=== PATIENT | male | born 1965 | race Caucasian/White ===

== ENCOUNTER → 2024-04-13 12:46 | Outpatient (REF) | payer BC, SELFPAY | LOC: RAD 12:46 | PROVIDERS: ATTENDING PHYSICIAN Surgery; FAMILY PHYSICIAN Family Medicine | DX: R31.9 Hematuria, unspecified (principal) | CPT/HCPCS: 74178; Q9967 ==

== ENCOUNTER 2024-04-27 20:35 | Day surgery (SDC) | payer BC, SELFPAY ==
[2024-04-27 16:13] VITALS: BP 90/65
[2024-04-27 16:27] VITALS: BMI 30.5
--- NOTE | 2024-04-27 16:42 | ED.GENMED ---
History of Present Illness
General
Chief Complaint: Flank Pain
Source: patient
Exam Limitations: none
Time Seen by Provider: 04/27/24 16:25
Nursing documentation reviewed up to this point in time: agreed with
History of Present Illness
History of Present Illness:
Patient to ED with complaint of right flank pain. He was evaluated by urology (Dr. Valdez) earlier this month when he noticed hematuria. OP CT revealed 5mm distal ureter stone. He also had a cystoscopy to r/o bladder issues - no issues found. He
is on eliquis for hx of Afib. He was placed on flowmax and was scheduled for a follow up next month. States today he developed mild right flank discomfort while at work. Pain has gotten progressively worse. Brought self to ED for eval. Spouse
met him in ED. Denies fever/chills, vomiting.
Past History
Past History
ED Past Medical History: Arrthythmia (Atrial fibrillation), HTN and Hypercholesterolemia
ED Past Surgical History: Cardiac
Patient has exhibited threatening behavior?: No
Social History
Tobacco: Non-smoker
Alcohol: Occasional
Personal:
Living: with family
Employment: Employed
Family History
Family History: Negative Diabetes, Hypertension or CAD
Review of Systems
Review of Systems
Allergies reviewed?: Yes
All Other Systems: ROS reviewed and negative except as documented in HPI and ROS
Constitutional: Reports no symptoms
EENT: Reports no symptoms
Respiratory: Reports no symptoms
Cardiac: Reports no symptoms
ABD/GI: Reports nausea
: Reports flank pain (RIght flank pain)
Musculoskeletal: Reports no symptoms
Skin: Reports no symptoms
Neurological: Reports no symptoms
Psychiatric: Reports no symptoms
Phy Exam
General Physical Exam
General Presentation: moderate distress
General age: appears stated age
General Skin: warm and dry
General Habitus: normal
General Mental: alert
Cardiovascular Exam
Cardiovascular Exam: regular rate/rhythm
Pulmonary Exam
Pulmonary Exam: no respiratory distress
Gastrointestinal Exam
Gastrointestinal Exam: normal bowel sounds, soft, no organomegaly, non distended and other (RIght flank pain)
Musculoskeletal Exam
Musculoskeletal Exam: full ROM and neuro vasc intact
Skin Exam
Skin Exam: normal color, warm/dry and no rash
Psychiatric Exam
Psychiatric Exam: normal mood/affect
Course
Orders/Labs/Results
Orders:
Orders
04/27/24 Dinner
Regular
At Your Request: Full Participation
04/27/24 16:40
0.9% Sodium Chloride 1000 ml [Nss] 1,000 ml IV BOLUS
HYDROmorphone [Dilaudid] 0.5 mg IV NOW STA
Ondansetron Injectable [Zofran] 4 mg IV NOW STA
04/27/24 16:41
CT Abd/pel Without Iv Or Oral Urgent
Comment:
Reason For Exam: right flank pain
04/27/24 16:52
Complete Blood Count/With Diff Urgent
Comprehensive Metabolic Panel Urgent
04/27/24 17:42
HYDROmorphone [Dilaudid] 0.5 mg .ROUTE .STK-MED ONE
04/27/24 17:44
HYDROmorphone [Dilaudid] 0.5 mg IV NOW STA
04/27/24 18:50
Urinalysis Reflex To Culture Urgent
Date Specimen was Collected: 04/27/24
Time Specimen was Collected: 18:41
Urine Microscopic Reflex Cult Urgent
Urine Culture Urgent
EDIS Source: U
Specimen Description:
Date Specimen was Collected: 04/27/24
Time Specimen was Collected: 18:41
04/27/24 19:55
Admit Patient As Directed
Co-Sign Provider:
Level of Care: Observation services
Assign to:: Medical/Surgical
Physician / Group: Peffer
Diagnosis: R ureteral stone
Expected length of stay greater than two midnights?: No
Code Status As Directed
Resuscitation Status: Full Code
Acetaminophen [Tylenol] 650 mg PO Q4HPRN PRN
HYDROmorphone [Dilaudid] 1 mg IV Q2HPRN PRN
Oxycodone/Acetaminophen [Percocet 5/325] 1 tablet PO Q4HPRN PRN
Oxycodone/Acetaminophen [Percocet 5/325] 2 tablet PO Q4HPRN PRN
Activity As Directed
Activity Level: As Tolerated
Intake/ Output As Directed
Frequency: Per unit guidelines
Okay to Shower As Directed
Pneumatic Compression Sleeves As Directed
Type: Knee high
Strain Urine As Directed
Vital Signs As Directed
Frequency: Per unit guidelines
PRN Pain Medication Management As Directed
May give lesser potent ordered pain med per pt: Yes
preference::
Protocol:: Medication orders for pain may be administered in a
manner that supports deferring to patient preference
when the pt is:
- Requesting an ordered lesser potent pain medication.
Least to most potent pain medications are defined
as: acetaminophen < NSAID < tramadol < opioids
(morphine, oxycodone, hydromorphone).
- Requesting a lesser dose of the same medication IF
ORDERED.
- Requesting a less intrusive route of administration
if both routes are prescribed by the provider (PO <
IV).
DX Deep Vein Thrombosis Video Routine
04/27/24 20:00
Normosol (Mult Electrolytes) [Normosol-R/Plasmalyte-A] 1,000 ml IV 125 mls/hr
04/27/24 20:01
EKG [Electrocardiogram (*1)] Routine
Reason for Study: PreOp
04/27/24 20:08
UROLOGY CONSULT Urgent
Consulting Provider: Eligio Miguel
Was physician already notified: Yes
04/27/24 22:00
Tamsulosin [Flomax] 0.4 mg PO HS
04/28/24 Breakfast
NPO
Allow oral meds: Yes
Allow clear liquids: No
Basic Metabolic Panel IN AM
Complete Blood Count/No Diff IN AM
LevoFLOXacin 500 MG/100 ML [Levaquin] 500 mg in 100 ml IV Q24H
04/28/24 08:00
Metoprolol [Lopressor] 25 mg PO DAILY
04/28/24 18:00
Atorvastatin [Lipitor] 40 mg PO QPM
Losartan [Cozaar] 25 mg PO QPM
Abnormal Lab Results
04/27/24 04/27/24
16:52 18:50
RBC 3.72 L 10^6/uL
(4.70-6.10)
Hgb 12.8 L g/dL
(13.0-18.0)
Hct 36.7 L %
(39.0-52.0)
MCV 98.7 H fL
(80.0-94.0)
MCH 34.4 H pg
(27.0-31.0)
RDW 11.3 L %
(11.5-14.5)
MPV 10.5 H fL
(7.4-10.4)
Absolute Lymphs (auto) 1.1 L 10^3/uL
(1.2-3.4)
Lymphocytes % 16.5 L %
(20.5-51.1)
Chloride 110 H mmol/L
(98-107)
Total Protein 5.7 L g/dl
(6.3-8.2)
Ur Occult Blood Reflex 4+ A
(Negative)
Urine Urobilinogen 2+ A
(Neg - 1+)
Leukocyte Esterase Rfl 1+ A
(Negative)
Urine RBC 70-80 A /HPF
(0-2)
Urine WBC (Reflex) 11-15 A /HPF
(0-5)
Urine Albumin (Reflex) 2+ A
(Neg - Trace)
04/27/24 16:52
04/27/24 16:52
Vital Signs
Initial and Last Documented VS:
Initial Vital Signs
Temp Pulse Resp BP Pulse Ox
97.6 F 77 16 90/65 98
04/27/24 16:13 04/27/24 16:13 04/27/24 16:13 04/27/24 16:13 04/27/24 16:13
Last Documented Vital Signs
Temp Pulse Resp BP Pulse Ox
97.9 F 73 20 141/98 96
04/27/24 22:05 04/27/24 22:05 04/27/24 22:05 04/27/24 22:05 04/27/24 22:05
*Radiology
Radiology exam reviewed: radiology read reviewed
*Pulse Oximetry
Patient hypoxic: no
*Critical Care Note
Total Time (30-74mins, 75-104mins- exclusive of procedures): Not Applicable
Update Note
Update Note:
6mm obstructing stone right proximal ureter with mild hydroureteronephrosis. Discussed findings with Dr. Miguel who evaluated this pateint in ED and has admitted this patient to his service.
ED Attending Note
-
Portions of this chart may have been created with voice recognition software.� Occasional wrong word or��sound alike� substitutions may have occurred due to the inherent limitations of voice recognition software.
Discharge Plan
Departure
Patient Disposition: Admit
Date of Disposition: 04/27/24
Time of Disposition: 20:04
Presentation/result/management discussed w/ accepting MD/DO: Dr. Miguel
Patient with high blood pressure during this ER visit?: Yes
Condition: Fair
Covid-19: Not Applicable
Discharge Problem:
Kidney stone
Interventions
Interventions:
*Risk Screen - Suicide Last Done: 04/27/24 16:13
*General Assessment Last Done: 04/27/24 16:27
*Neglect/Abuse Screening Last Done: 04/27/24 16:13
ED- Fall Risk Assessment Last Done: 04/27/24 16:27
*ED COVID-19 Vaccine History Last Done: 04/27/24 16:27
*Nursing Disposition Last Done: 04/27/24 22:03
UX-Wmycrs-Msqrcwxdjn Assessment Last Done: 04/27/24 16:27
ED-Male Genitourinary Assessment Last Done: 04/27/24 16:27
Discharge Date and Time
Discharge Date/Time: 04/27/24 22:04
[2024-04-27] MEDS: NSS 1000 IV (16:48)
[2024-04-27] MEDS: DILAUDID 0.5 MG IV ×2 (16:49→17:45)
[2024-04-27] MEDS: ZOFRAN 4 MG IV (16:49)
[2024-04-27 17:19] LABS: ALT (SGPT) 29 U/L (0-50); AST (SGOT) 28 U/L (17-59); Albumin 3.9 g/dl (3.5-5.0); Alkaline Phosphatase 52 U/L (38-126); Blood Urea Nitrogen 13 mg/dl (9-20); Calcium 8.8 mg/dl (8.4-10.2); Carbon Dioxide 22 mmol/L (22-30); Chloride 110 mmol/L (98-107); Estimated Creatinine Clearance 112 ml/min; Glucose 88 mg/dl (70-99); Potassium 3.8 mmol/L (3.5-5.1); Sodium 139 mmol/L (135-145); Total Bilirubin 0.9 mg/dl (0.2-1.3); Total Protein 5.7 g/dl (6.3-8.2); eGFR > 60.00
[2024-04-27 17:26] LABS: % Basophils 0.7 % (0-2); % Eosinophils 1.2 % (0-6); % Immature Granulocytes 0.1 % (0-0.5); % Lymphocytes 16.5 % (20.5-51.1); % Monocytes 7.5 % (1.7-9.3); Absolute Basophils 0.1 10^3/uL (0-0.2); Absolute Eosinophils 0.1 10^3/uL (0-0.7); Absolute Lymphocytes 1.1 10^3/uL (1.2-3.4); Absolute Monocytes 0.5 10^3/uL (0.1-0.6); Hematocrit 36.7 % (39.0-52.0); Hemoglobin 12.8 g/dL (13.0-18.0); Mean Corp Hgb Conc. 34.9 g/dL (33.0-37.0); Mean Corpuscular Hgb 34.4 pg (27.0-31.0); Mean Corpuscular Volume 98.7 fL (80.0-94.0); Mean Platelet Volume 10.5 fL (7.4-10.4); Nucleated Red Blood Cells % 0 % (-); Platelet Count 158 10^3/uL (130-400); Red Blood Cell Count 3.72 10^6/uL (4.70-6.10); Red Cell Dist. Width 11.3 % (11.5-14.5); White Blood Cell Count 6.7 10^3/uL (4.8-10.8)
[2024-04-27 18:55] VITALS: BP 136/82
[2024-04-27 18:55] LABS: Urine Albumin 2+ (Neg - Trace); Urine Bilirubin Negative (Negative); Urine Character Cloudy (Clear); Urine Color Yellow; Urine Glucose Negative (Negative); Urine Ketone Negative (Negative); Urine Leukocyte 1+ (Negative); Urine Nitrite Negative (Negative); Urine Occult Blood 4+ (Negative); Urine Specific Gravity 1.015 (<1.030); Urine Urobilinogen 2+ (Neg - 1+)
[2024-04-27 19:10] LABS: Urine Mucus Few; Urine Red Blood Cell 70-80 /HPF (0-2); Urine Squamous Cell 0-2 /LPF (Few)
--- NOTE | 2024-04-27 19:59 | HP.FOC2 ---
Focused History & Physical
Chief Complaint
HPI:
Chief Complaint: Flank pain
HPI / Indication for Planned Procedure: 58M [address] Valdez for hematuria and R prox ureteral stone dx earlier this month
Presented for acute R flank pain which was not able to be controlled with IV meds in the ER
No fevers/chills
No sepsis or infectious signs in ED
On Eliquis for afib - has not recently been in afib per his report
Has a cardioversion planned for early May
Relevant Past Medical History: Other (Kidney stones)
Relevant Social History: Negative
Relevant Family History: Negative
Relevant Past Surgical History: Negative
Review of Systems
Review of Pertinent Systems: All Systems Negative Except for the Following Positives
Medication
See Medication form for detailed medications: Yes
Medication List (including Herbals & OTC):
apixaban 5 mg tablet (Eliquis) 5 mg PO BID 04/07/21
metoprolol tartrate 25 mg tablet 25 mg PO DAILY 04/07/21
vardenafil 20 mg tablet (Levitra) 20 mg PO DAILYPRN PRN as needed 04/07/21
atorvastatin 40 mg tablet 40 mg PO QPM #90 tabs 04/28/21
losartan 25 mg tablet 25 mg PO QPM 04/28/21
Medications Reviewed: Yes
Allergies and Reactions
Patient has Allergies: Yes
Noted Allergies and Reactions:
Allergy/AdvReac Type Severity Reaction Status Date / Time
Cephalosporins Allergy Severe Hives Verified 04/27/24 16:15
erythromycin base Allergy Severe Pharmacy Verified 04/27/24 16:15
to Review
penicillin G Allergy Severe Hives Verified 04/27/24 16:15
Penicillins Allergy Severe Hives Verified 04/27/24 16:15
Pertinent Physical Exam
All Other Systems: Negative
Head/Neck: Normal
Lungs: Normal
Abdomen: Normal
Diagnosis / Assessment
58M with severe pain from R proximal ureteral stone which has not moved since prior CT early this month
Discussed continued trial of passage vs intervention and patient wishes to proceed with ureteroscopy
Plan / Procedure
- NPO at MN
- OR tomorrow for R ULS
- PReop EKG
- Hold Eliquis - discussed that since it will be less than 25hrs since last dose I may not be able to complete stone removal
- IVF
- Pain control
- Abx ppx with levaquin
Anesthesia/Sedation to be done by Anesthesia Provider: Yes
[2024-04-27] MEDS: DILAUDID 1 MG IV ×2 (20:44→22:53)
[2024-04-27 22:00] VITALS: BMI 28.7
[2024-04-27 22:05] VITALS: BP 141/98
[2024-04-27 22:40] VITALS: BMI 28.7
[2024-04-27] MEDS: NORMOSOL-R/PLASMALYTE-A 1000 IV (22:47)
[2024-04-27] MEDS: FLOMAX 0.4 MG PO (22:47)
[2024-04-28] VITALS (9 sets, daily range): BP systolic 104–143; BP diastolic 76–97
--- NOTE | 2024-04-28 00:36 | TRANSFER ---
Pt arrived @2200 from ED w dx R ureteral stone, c/o pain 07/11 but did not need pain medication at that time, ate lunch box provided from ED. VS WNL. Pt AAOx3, able to make all needs known, independent in room. Educated on need to strain urine for
stone, strainer in bathroom. Bed in lowest position, call cramer within reach.
[2024-04-28] MEDS: PERCOCET 5/325 2 TABLET PO ×2 (02:04→08:00)
[2024-04-28] MEDS: NORMOSOL-R/PLASMALYTE-A IV (05:38)
[2024-04-28] MEDS: LEVAQUIN 100 IV (05:38)
[2024-04-28] MEDS: LOPRESSOR 25 MG PO (07:52)
[2024-04-28] MEDS: NORMOSOL-R/PLASMALYTE-A 1000 IV (07:52)
--- NOTE | 2024-04-28 09:56 | CM ---
Pt in OR. Unable to complete IA at this time. Will attempt to see pt post-op
--- NOTE | 2024-04-28 11:30 | PTCARENOTE ---
Patient returned to his room from PACU post right cysto with lithotripsy and stent placement for kidney stone removal.The patient complains of some mild discomfort he says it mostly is pressure feeling like he has to urinate.Vital signs are
stable.The stent is in place with the stent taped to his penis.Patient will be discharged later today when he is able to void and can tolerate a diet.
--- NOTE | 2024-04-28 12:56 | CM ---
Met with pt at bedside
Pt reports he lives with his in a 2 story home; 2 steps to enter, FF set up
Independent, no device to ambulate, employed, drives
DME - none
SNF/HH - no past hx
Has ride at d/c
PCP - Ciara Gaston
Pharm - [facility]
Given OBS letter
Plan - anticipate home no needs
[2024-04-28] MEDS: Pyridium 200 MG PO (13:05)
[2024-04-28] MEDS: ROXICODONE 10 MG PO (13:05)
[2024-05-01 17:28] LABS: Stone Analysis Mass 16 mg
== END 2024-04-28 15:42 | disposition home or self-care (01) ==
LOC: SDS 20:35
PROVIDERS: Nurse Practitioner; ATTENDING PHYSICIAN Urology; EMERGENCY PHYSICIAN Emergency Medicine; FAMILY PHYSICIAN Family Medicine
DX: N13.2 Hydronephrosis with renal and ureteral calculous obstruction (principal); Z79.01 Long term (current) use of anticoagulants; I48.91 Unspecified atrial fibrillation
CPT/HCPCS: 52356; 74018; 74176; 76000; 80053; 81003; 81015; 82365; 85025; 87086; 93005; 96361; 96374; 96375; 96376; 99285; A4300; C1769; C2617; G0378

== ENCOUNTER 2024-07-14 10:18 | Day surgery (SDC) | payer BC, SELFPAY ==
[2024-07-03 11:11] VITALS: BMI 28.0
[2024-07-03 11:37] LABS: % Basophils 1.1 % (0-2); % Eosinophils 0.2 % (0-6); % Immature Granulocytes 0.4 % (0-0.5); % Lymphocytes 40.3 % (20.5-51.1); % Monocytes 6.1 % (1.7-9.3); % Neutrophils 51.9 % (42.2-75.2); Absolute Basophils 0.1 10^3/uL (0-0.2); Absolute Lymphocytes 2.2 10^3/uL (1.2-3.4); Absolute Monocytes 0.3 10^3/uL (0.1-0.6); Absolute Neutrophils 2.9 10^3/uL (1.4-6.5); Hematocrit 38.4 % (39.0-52.0); Hemoglobin 13.6 g/dL (13.0-18.0); Mean Corp Hgb Conc. 35.4 g/dL (33.0-37.0); Mean Corpuscular Hgb 33.7 pg (27.0-31.0); Mean Platelet Volume 9.9 fL (7.4-10.4); Nucleated Red Blood Cells % 0 % (-); Platelet Count 170 10^3/uL (130-400); Red Blood Cell Count 4.04 10^6/uL (4.70-6.10); Red Cell Dist. Width 12.9 % (11.5-14.5); White Blood Cell Count 5.5 10^3/uL (4.8-10.8)
--- NOTE | 2024-07-03 12:25 | HPS.HSE ---
Family Physician
-
Family Physician: Ciara Gaston
Chief Complaint
-
Paroxysmal atrial fibrillation. Atrial flutter.
History of Present Illness
The patient is a 58 year old male presenting today for paroxysmal atrial fibrillation and atrial flutter. The patient reports intermittent palpitations associated with his atrial arrhythmias. He previously underwent pulmonary vein
isolation and CTI ablation for these diagnoses in October 2021. Unfortunately, he was noted to have a recurrence of his atrial fibrillation not long after his procedure. He currently uses Metoprolol Tartrate and Propafenone as needed for
pharmacological therapy. He does report compliance with Eliquis for oral anticoagulation due to a CHADS-VASc of 2. He is interested in pursuing with Affera atrial fibrillation and atrial flutter ablation at this time. He denies any current
complaints today such as chest pain, shortness of breath, nausea, vomiting, diarrhea, lightheadedness, dizziness, cough, sore throat, or fever.
Medical History
Past Medical History
Past Medical History: Reports Other
Additional Past Medical History:
1. Paroxysmal atrial fibrillation and atrial flutter, status post pulmonary vein isolation and CTI ablation, 2021, and cardioversion x3; pharmacological therapy with Metoprolol Tartrate and Propafenone as needed, oral anticoagulation with Eliquis.
2. Hypertension.
3. Hyperlipidemia.
4. Coronary artery calcifications.
5. Tachycardia induced cardiomyopathy, recovered.
6. Mild tricuspid regurgitation.
7. Diverticulosis.
8. Nephrolithiasis.
9. Fatty liver disease.
10. Right retinal tear, status post surgical intervention.
11. Erectile dysfunction.
Past Surgical History: Reports Other
Additional Past Surgical History:
1. Pulmonary vein isolation and CTI ablation.
2. Cardioversion x2.
3. Cystoscopy, right ureteroscopy, laser lithotripsy, and stent placement.
4. Right inguinal hernia repair.
5. Right upper extremity nerve repair.
6. Right retinal tear repair.
7. Colonoscopy.
Social History
Tobacco: Non-smoker
Alcohol: Other (He drinks alcohol a 'couple times a week'. )
Personal:
Living: Other (He lives with his in a 2 story home. )
Family History
Family History: Not pertinent
Allergies / Home Medications
Allergy/Medication List:
Home medications:
1. Atorvastatin 40 mg p.o. at bedtime.
2. Eliquis 5 mg p.o. twice a day.
3. Losartan 25 mg p.o. at bedtime.
4. Metoprolol Tartrate 25 mg p.o. daily as needed.
5. Propafenone 600 mg p.o. daily as needed.
6. Tadalafil 5 mg p.o. daily as needed.
7. Tamsulosin 0.4 mg p.o. daily as needed.
8. Vitamin B complex 1 tablet p.o. daily.
Allergies: Penicillin. Cephalosporins. Erythromycin.
Review of Systems
-
A 12 point ROS was completed and negative except as noted: Yes
Physical Exam
Vital Signs
Blood pressure 155/95 in the setting of anxiety. Heart rate 96. Respirations 18. Pulse ox 98% on room air.
Height 5 feet, 11 inches. Weight 90.9 kg. BMI 27.9.
Physical Exam
General: Well Developed, Well Nourished and No Apparent Distress
HEENT: NormoCephalic, Moist mucous membranes, Atraumatic and PERRLA
Respiratory: Clear
Cardiac: Regular Rhythm
GI: Soft, Non Tender and Non Distended
Musculoskeletal: No Edema and Normal Gait & Station
Skin: Warm and Dry
Neuro: AO x 3 and Nonfocal/grossly intact
Psych: Anxious
Laboratory Results
-
07/03/24 11:20
DIAGNOSTIC STUDIES as of 07/03/2024: Sodium 140. Potassium 4.1. BUN 9. Creatinine 0.8. Glucose 84. Calcium 9.4. AST 44. ALT 38. Albumin 5.0. Type and screen O negative.
EKG 07/03/2024: Normal sinus rhythm. Low voltage QRS.
Echocardiogram 07/14/2021: Normal systolic function. Left ventricular ejection fraction is 55-60%. Mild tricuspid regurgitation. Estimated pulmonary artery pressure of 28 mmHg.
Impression/Plan
-
IMPRESSION/PLAN:
1. Paroxysmal atrial fibrillation and atrial flutter: The patient is in need of an Affera atrial fibrillation and atrial flutter ablation with Dr. Penny Escobar on 07/14/2024. The benefits and risks of the procedure have been explained to the
patient. The patient understands these risks and wishes to proceed. He is aware to continue compliance with his Eliquis up until the night prior to his procedure.
[2024-07-03 12:57] LABS: ALT (SGPT) 38 U/L (0-50); AST (SGOT) 44 U/L (17-59); Alkaline Phosphatase 69 U/L (38-126); Blood Urea Nitrogen 9 mg/dl (9-20); Calcium 9.4 mg/dl (8.4-10.2); Carbon Dioxide 21 mmol/L (22-30); Chloride 104 mmol/L (98-107); Estimated Creatinine Clearance 109 ml/min; Glucose 84 mg/dl (70-99); Potassium 4.1 mmol/L (3.5-5.1); Sodium 140 mmol/L (135-145); Total Bilirubin 1.1 mg/dl (0.2-1.3); Total Protein 7.1 g/dl (6.3-8.2); eGFR > 60.00
[2024-07-14] VITALS (9 sets, daily range): BP systolic 103–136; BP diastolic 81–89
--- NOTE | 2024-07-14 09:44 | ITS.CL.ABL ---
Route Sales Specialist - Ablation
Ablation
Procedure Report:
AFIB / A flutter ablation:
Mr. Cerrato is a very pleasant 58 yr old gentleman with medical history significant for symptomatic paroxysmal atrial fibrillation s/p AF ablation on 10/10/2021 with PVI and CTI is here in the EP lab for atrial fibrillation / flutter ablation
Date of Procedure:
07/14/2024
Indications:
Symptomatic recurrent atrial fibrillation / atrial flutter
Pre-Operative Diagnosis:
Symptomatic recurrent atrial fibrillation / atrial flutter
Post-Operative Diagnosis:
Symptomatic recurrent atrial fibrillation / atrial flutter
Procedure Performed:
Redo atrial fibrillation ablation
Left atrial anterior wall tachycardia ablation
Ablation of anterior wall flutter line of block creation for gilbert-mitral flutter
Performing Physician:
Penny Escobar MD
Assistants:
EP staff
Anesthesia:
See anesthesia records
Detailed Description of the Procedure:
Written informed consent was obtained from the patient after a full explanation of the risks and benefits of the procedure including the risks of sedation and anesthesia.
The patient was brought to the electrophysiology laboratory in stable condition in fasting state. Continuous electrocardiographic and hemodynamic monitoring was initiated.
The initial rhythm was sinus.
The procedure site was meticulously prepared with surgical scrub and allowed to dry with no pooling. Sterile draping was applied to cover the procedure site. The image intensifier was draped with sterile bag and positioned over the patient. After
infusion of local anesthetic, vascular access was obtained under ultrasound guidance and sheaths were placed over guide wire as detailed below.
The images of the ultrasound of the femoral vessels were stored in patient chart.
Sheath and Catheter Placement:
Sheaths:
��������� Agilis sheath in right femoral vein upgraded from 8Fr in right femoral vein
��������� 9Fr in right femoral vein
��������� 7Fr in right femoral vein
Catheters:
��������� The Affera Sphere 9 catheter -bidirectional D/F� - at locations of HRA, RV, LA and LV.
��������� ICE catheter -AccuNav -� at locations of RA, SVC, and RV.
��������� Bard Deca polar catheter in RA and CS
Heparin was initiated after the access was obtained.
Intracardiac ECHO:
An 8-Malian AcuNav intracardiac ECHO (ICE) probe was advanced through the 9-Malian sheath in the left femoral vein into the right atrium under fluoroscopic and ICE ultrasound image guidance and a baseline ECHO study was performed. The left atrial
size was dilated. There was trace tricuspid regurgitation. The aortic valve was grossly normal. There was normal left ventricular size and function. There is no pericardial effusion. The RAFAEL has normal low velocities. The pulmonary had good flow
identified.
During the procedure, ICE was used for monitoring of complications, guidance of trans-septal puncture, monitor the catheter position and tracking ablation lesions. No change in the pericardial space noted throughout the procedure.
Trans-septal Puncture:
Heparin was initiated and infused to maintain appropriate ACT. A J-tipped guidewire was advanced through into the superior vena cava under fluoroscopic and ICE guidance. The Agilis sheath with BRK needle was advanced into the superior vena cava over
the guidewire. The apparatus was withdrawn until it was in contact with the fossa ovalis. The position was adjusted based on fluoroscopy and ultrasound images from ICE. Under fluoroscopic, hemodynamic and ICE ultrasound guidance, left atrium was
cannulated by advancing the needle. Once atrial septum was cannulated, the needle was pulled back and the guide wire was advanced through the needle into the left atrium. The guide wire was advanced into the left superior pulmonary vein. Both the
sheath and the dilator was advanced into the left atrium. The dilator with the needle was withdrawn. Blood was aspirated from the Agilis sheath and arterial blood confirmed. The sheath was flushed. Saline injection noted into the left atrium on ICE.
The waveform of the LA pressure was recorded. The mapping catheter was advanced in the Agilis sheath into the left pulmonary vein.
3D Electroanatomic Mapping:
Using the Sphere 9 Affera catheter advanced through Agilis sheath into the left atrium, an electroanatomic map (EAM) of the left atrium was created using [employer] mapping system with [employer] software. The map was used for localization of catheter
position and tacking of ablation lesions. The EAM of the left atrium showed a total of 4 PVs with two left and the two right sided pulmonary veins with all electrically isolated from the body the LA. It showed scattered scar on the anterior wall at
the base of the RAFAEL. The LA was dilated in size.
Following the EAM, preparation were made for ablation.
Ablation:
Ablation # 1: Pulmonary vein isolation:
Pulsed field ablation was performed using an open irrigation, bidirectional, contact sensing, dual energy ablation catheter (Seeker [employer] sphere -9). The PVs were isolated but there was fractionated signals noted at the antrum of the veins that might be
the origin for atrial fibrillation. The areas of fractionated signals were ablated. The LSPV posterior antrum had sharp signals but were not captured by pacing. Given the sharp signals, these areas were ablated using Affera sphere catheter.
The roof and the posterior wall was healthy and decision was made to not ablated or isolated the posterior wall. The roof was also not ablated.
Confirmation of the PVI and bidirectional block:
Following achievement of entrance block at the pulmonary veins, pacing from the Sphere 9 affera catheter in each of the four veins at 20 milliamps for 4 milliseconds showed entrance and exit block.
The LA was mapped with The [employer] mapping system with [employer]-1 software in sinus rhythm confirming the line of block at the ablation lesions lines.
Ablation # 2: Anterior wall CFAE and scar area ablation for atrial fibrillation
The anterior wall at the base of the RAFAEL had fractionated signals that was deemed the source of AF and that source areas were ablated using the pulsed field ablation.
Ablation # 3: Anterior mitral line formation for atypical mitral atrial flutter
The scar on the anterior wall was a set up for mitral flutter. The ablation on the area was likely to slow the conduction further and decision was made create a full anterior line of block from the base of the RAFAEL to mitral annulus and to the LSPV
anterior antrum.
The radiofrequency ablation was performed at the mitral annulus and the pulsed field ablation was done on the rest of the anterior wall to create a line of block at the mitral line.
CTI line of block confirmation:
The ablation catheter was pulled to the RA and the RA was mapped in detail. The CTI line of block was confirmed by pacing the CS and the trans-isthmus conduction time was 156 msec. The EAM with CS pacing showed block at the CTI and the the
conduction time was shorter at the lateral wall than the CTI adjacent to the line of block. The map showing moving of conduction wave from superior to inferior on the lateral wall with CS pacing again confirming block at CTI. �
EP study:
Sinus Node Function: The sinus node functions are within acceptable normal range.
Atrioventricular Leela Function: �Post ablation there was normal AV conduction noted with normal AV conduction time.
Procedure End
ICE study was done again that showed no epicardial accumulation. No complications noted.
Following the completion of the EP study, catheters were removed. Protamine 40 mg was given at the end of the procedure and ACT was checked repeatedly. The sheaths were removed and hemostasis achieved with Figure of 8 suture and manual compression
after acceptable ACT is achieved.
Left atrial Pressure:
Pre-Procedure: Mean LA pressure was 9mmHg
Post-Procedure: Mean LA pressure was 12mmHg
Post-Procedure: Mean RA pressure was 8mmHg
Fluoro Time:
0.5min / 1.2mGy
Estimated Blood loss:
<10 cc
Specimens Removed:
None.
Implants / Devices:
None
Urine output:
None
Packs / Drains/ Tubes:
None
Instrument / Sponge Count Correct:
Yes
Complications of the Procedure:
None
Condition of Patient at Time of Transfer:
Hemodynamically stable with no neurological or vascular compromise.
Summary:
��������� Successful atrial fibrillation ablation with circumferential bidirectional line of block at pulmonary venin antra (Pulmonary vein isolation), CFAE ablation for atrial fibrillation at the base of RAFAEL, anterior line of block creation for
atypical flutter.
��������� Confirmation of cavo-tricuspid isthmus line block formation
Figures from the Procedure:
Figure 1: The electroanatomic mapping (EAM) of the left atrium with bipolar voltage (purple indicates normal electrical activity with red as no myocardial muscle electric activity indicating a line of block or scar.
--- NOTE | 2024-07-14 10:27 | PTCARENOTE ---
Orders irrelevant to this admission noted post-op and accuracy of admission ACCOUNT questioned. Pt was registered under last admission and today's documentation up to 10 am was done under the [id number] (old account). Admission was notified and
charting was merged. All further documentation past 10 am done in accurate .
[2024-07-14] MEDS: TYLENOL 650 MG PO (11:30)
--- NOTE | 2024-07-14 13:13 | W.PN.UPDATE ---
Update Note
Progress Note Update
Pt seen post PFA. Right groin site without ht/bleeding, non tender. OOB ambulating, urinating without difficulty. Post EKG NSR 77, no acute changes. Resume eliquis tonight at usual time. Followup at [facility] as scheduled. Home today if groin site/tele
remain stable.
== END 2024-07-14 14:30 | disposition home or self-care (01) ==
LOC: CATH 10:18
PROVIDERS: ATTENDING PHYSICIAN Internal Medicine Cardiovascular Disease; FAMILY PHYSICIAN Family Medicine; OTHER PHYSICIAN Internal Medicine Cardiovascular Disease
DX: I48.0 Paroxysmal atrial fibrillation (principal); I48.92 Unspecified atrial flutter; I10 Essential (primary) hypertension; E78.5 Hyperlipidemia, unspecified; I25.10 Atherosclerotic heart disease of native coronary artery without angina pectoris; K76.0 Fatty (change of) liver, not elsewhere classified; K57.90 Diverticulosis of intestine, part unspecified, without perforation or abscess without bleeding; I07.1 Rheumatic tricuspid insufficiency; Z79.01 Long term (current) use of anticoagulants; Z79.899 Other long term (current) drug therapy; Z88.0 Allergy status to penicillin; Z88.1 Allergy status to other antibiotic agents; N20.0 Calculus of kidney; I42.8 Other cardiomyopathies
CPT/HCPCS: 36415; 80053; 85025; 86850; 86900; 86901; 93005; 93655; 93656; 93657; C1730; C1759; C1766; C1769; C1892

== ENCOUNTER → 2024-12-30 15:03 | Outpatient (REF) | payer BC, SELFPAY | LOC: HWRAD 15:03 | PROVIDERS: ATTENDING PHYSICIAN Surgery; FAMILY PHYSICIAN Family Medicine | DX: N20.0 Calculus of kidney (principal) | CPT/HCPCS: 76775 ==